=== PATIENT | female | born 1970 | race Two or more races ===

== ENCOUNTER 2018-03-06 10:32 | Outpatient (CLI) | payer OTHER | END 2018-03-06 10:33 | disposition home or self-care (01) | LOC: MAMO-SONO 10:32 | DX: Z12.31 Encounter for screening mammogram for malignant neoplasm of breast (principal) ==

== ENCOUNTER 2018-10-19 07:21 | Outpatient (CLI) | payer OTHER | END 2018-10-19 07:40 | disposition home or self-care (01) | LOC: LAB 07:21 | DX: N91.1 Secondary amenorrhea (principal); N94.89 Other specified conditions associated with female genital organs and menstrual cycle; D25.9 Leiomyoma of uterus, unspecified; R51 Headache; K80.20 Calculus of gallbladder without cholecystitis without obstruction; Z01.811 Encounter for preprocedural respiratory examination; Z01.812 Encounter for preprocedural laboratory examination ==

== ENCOUNTER 2018-10-30 05:20 | Day surgery (SDC) | payer OTHER | END 2018-10-30 16:20 | disposition home or self-care (01) | LOC: CIR.AMB 05:20 | DX: K80.10 Calculus of gallbladder with chronic cholecystitis without obstruction (principal) ==

== ENCOUNTER 2018-12-19 13:48 | Outpatient (CLI) | payer OTHER | END 2018-12-19 14:25 | disposition home or self-care (01) | LOC: NUCLEAR 13:48 | DX: N13.30 Unspecified hydronephrosis (principal) | CPT/HCPCS: 78708; A9539; J1940 ==

== ENCOUNTER → 2022-01-18 | Outpatient (CLI) | payer OTHER | END | disposition home or self-care (01) | LOC: RAD 01-14 15:35 | DX: M62.830 Muscle spasm of back (principal) ==

== ENCOUNTER 2022-07-19 12:57 | Outpatient (CLI) | payer OTHER | END 2022-07-19 13:09 | disposition home or self-care (01) | LOC: MAMO-SONO 12:57 | PROVIDERS: ATTEND Specialist | DX: Z12.31 Encounter for screening mammogram for malignant neoplasm of breast (principal) ==

== ENCOUNTER 2022-07-21 14:06 | Outpatient (CLI) | payer OTHER | END 2022-07-21 14:21 | disposition home or self-care (01) | LOC: SONOGRAMA 14:06 | PROVIDERS: ATTEND Obstetrics & Gynecology Gynecology | DX: R10.2 Pelvic and perineal pain (principal) ==

== ENCOUNTER 2022-07-28 13:26 | Outpatient (CLI) | payer OTHER | END 2022-07-28 13:28 | disposition home or self-care (01) | LOC: NUCLEAR 13:26 | PROVIDERS: ATTEND Obstetrics & Gynecology Gynecology | DX: M81.0 Age-related osteoporosis without current pathological fracture (principal); M89.9 Disorder of bone, unspecified ==

== ENCOUNTER 2023-11-15 11:23 | Emergency (ER) | payer OTHER ==
[~2023-11-15] VITALS: Ht 157.5 cm; Wt 62.6 kg
[2023-11-15] MEDS ORDERED: KETOROLAC TROMETHAMINE 30 MG VIAL IM STA (14:00)
[2023-11-15] MEDS ORDERED: KETOROLAC TROMETHAMINE 30 MG VIAL ONE (14:09)
[2023-11-15] MEDS ORDERED: DICLOFENAC SODI75 MG PO (18:36)
== END 2023-11-15 19:10 | disposition home or self-care (01) ==
LOC: ER 11:24
DX: M25.561 Pain in right knee (principal); M79.672 Pain in left foot; M79.671 Pain in right foot; M77.32 Calcaneal spur, left foot; M77.31 Calcaneal spur, right foot
CPT/HCPCS: 73560; 73630; 96372; 99283; J1885

== ENCOUNTER 2023-11-20 09:48 | Outpatient (CLI) | payer OTHER ==
[~2023-11-20 09:48] MED LIST: DICLOFENAC SODI75 MG PO
== END 2023-11-20 15:32 | disposition home or self-care (01) ==
LOC: MRI 09:48
PROVIDERS: ATTEND General Practice
DX: M25.561 Pain in right knee (principal); R60.0 Localized edema
CPT/HCPCS: 73721